=== PATIENT | female | born 1965 | race African-American/Black ===

== ENCOUNTER 2024-02-04 18:38 | Emergency (ER) | payer MEDICAID ==
[~2024-02-04] VITALS: Ht 154.9 cm; Wt 47.0 kg
[~2024-02-04 18:38] MED LIST: AMLO10TA80 PO; ASA PO; ASPI-1497 PO; GABA100C PO; KCL PO; LISI20TA31 PO; LORA-249 PO; SERT50TA PO; SPIR100T5 PO; TAMAZAPAM PO; TEMA30CA5 PO; TRAM100T34 PO; VERA240T16 PO; VERAPAMIL PO
[2024-02-04 18:47] VITALS: O2SAT 100
[2024-02-04 20:50] LABS: HEMATOCRIT. 37.7 % (36.0-48.0); HEMOGLOBIN. 12.6 g/dL (12.0-16.0); LYMPHOCYTES % 29.4 % (20.0-50.0); MEAN CORPUSCULAR HEMOGLOBIN 28.3 pg (28.0-32.0); MEAN CORPUSCULAR HGB CONC 33.5 g/dL (31.0-37.0); MEAN CORPUSCULAR VOLUME 84.6 fL (81.0-99.0); MEAN PLATELET VOLUME 7.3 fl (7.4-10.4); MONOCYTES % 6.5 % (2.0-8.0); NEUTROPHILS % 61.1 % (40.0-76.0); PLATELET 324 x1000/uL (130-400); RED BLOOD CELL COUNT 4.45 mill/uL (4.2-5.4); RED CELL DISTRIBUTION WIDTH 15.1 % (11.6-14.6)
[2024-02-04 21:06] LABS: ALANINE AMINOTRANSFERASE 43 IU/L (10-49); ALBUMIN 5.2 g/dL (3.2-4.8); ASPARTATE AMINOTRANSFERASE 28 IU/L (<34); BILIRUBIN TOTAL 0.4 mg/dL (0.1-1.0); CARBON DIOXIDE 25 mEq/L (21-32); CHLORIDE 105 mEq/L (98-107); CREATININE 1.8 mg/dL (0.6-1.0); GLUCOSE 82 mg/dL (70-105); SODIUM 136 mEq/L (136-145); TROPONIN I HIGH SENSITIVITY 10 ng/L (3.0-34); UREA NITROGEN BLOOD 40 mg/dL (9-23)
[2024-02-04 21:07] LABS: PROTEIN TOTAL 8.7 g/dL (6.0-8.3)
[2024-02-04 21:09] LABS: POTASSIUM 6.5 mEq/L (3.5-5.1)
[2024-02-04] MEDS: SODIUM POLYSTYRENE SULFONATE 15 G/60 ML BOT PO NR (21:30)
[2024-02-04] MEDS: DEXTROSE 50% WATER 50ML SYRINGE IV NR (21:53)
[2024-02-04] MEDS: INSULIN REGULAR (HUMULIN R) 300UNITS/3ML VIAL IV NR (21:54)
[2024-02-04] MEDS: SODIUM BICARBONATE 8.4% 1 MEQ/ML 50ML SYR IV NR (21:54)
[2024-02-04] MEDS: SODIUM CHLORIDE 0.9% 1000ML BAG (SEPSIS BOLUS) IV NR (21:54)
[2024-02-05 00:33] LABS: CALCIUM 8.5 mg/dL (8.7-10.4); CREATININE 1.6 mg/dL (0.6-1.0); POTASSIUM 4.3 mEq/L (3.5-5.1)
[2024-02-05 03:16] LABS: CLARITY URINE CLEAR (CLEAR); COLOR URINE YELLOW (YELLOW); GLUCOSE URINE NEGATIVE (NEGATIVE); KETONES URINE NEGATIVE (NEGATIVE); LEUKOCYTE ESTERASE URINE NEGATIVE (NEGATIVE); NITRITE URINE NEGATIVE (NEGATIVE); OCCULT BLOOD URINE TRACE (NEGATIVE); PH URINE 8.5 (4.5-8.0); PROTEIN URINE NEGATIVE (NEGATIVE); SPECIFIC GRAVITY URINE 1.009 (1.005-1.030); UROBILINOGEN URINE 0.2 E.U./dL (0.2-1.0)
[2024-02-05 07:41] LABS: SQUAMOUS EPITHELIAL CELL URINE RARE /lpf (RARE/1+)
[2024-02-05 07:43] LABS: BACTERIA URINE NONE SEEN; WBC URINE 0-2 /hpf (0-2)
[2024-02-05 08:00] VITALS: BP 151/94; PULSE 83; RESP 13; TEMP 98.9
[2024-02-05] MEDS ORDERED: IPRATROPIUM/ALBUTEROL 0.5-3(2.5)MG/3ML NEB HHN PRN (10:45)
[2024-02-05] MEDS ORDERED: ACETAMINOPHEN 325MG TABLET PO PRN (10:45)
[2024-02-05] MEDS ORDERED: ONDANSETRON HCL 4MG/2ML INJ IV PRN (10:45)
== END 2024-02-05 09:50 | disposition left against medical advice (07) ==
LOC: ER 18:38 → CANBEDREQ 02-05 11:07
DX: E87.5 Hyperkalemia (principal); I10 Essential (primary) hypertension; F12.10 Cannabis abuse, uncomplicated; Z79.899 Other long term (current) drug therapy
CPT/HCPCS: 80053; 82962; 83880; 85025; 85379; 84484; 36415; 71045; 93005; 96374; 96375; 99285; 80048; 81003; J1815; J3490; Z7610